=== PATIENT | female | born 1980 | race Caucasian/White ===

== ENCOUNTER → 2018-08-09 10:20 | Outpatient (CLI) | payer SELFPAY ==
--- NOTE | 2018-08-09 10:31 | US_ITS ---
STUDY: RENAL ULTRASOUND - COMPLETE REASON FOR EXAM: Female, 38 years old. Left flank pain left suprapubic pain. TECHNIQUE: Ultrasound evaluation of the kidneys was performed with real-time and static joyner-scale imaging. COMPARISON: None. FINDINGS: RIGHT KIDNEY: Normal location of the right kidney, which is normal in size. The right kidney measures 10.6 cm x 5.1 cm x 4.7 cm. There is a normal cortex of the right kidney. The renal cortex measures 1.4 cm. There is no right renal mass or cyst. There are no right renal calculi. There is no right hydronephrosis. DISTAL RIGHT URETER: There is non-visualization of the distal right ureter. There is no demonstrated right ureterovesical junction calculus. There is a visualized right ureteral jet. LEFT KIDNEY: Normal location of the left kidney, which is normal in size. The left kidney measures 10.7 cm x 4.4 cm x 4.6 cm. There is a normal cortex of the left kidney. The renal cortex measures 1.4 cm. There is no left renal mass or cyst. There are no left renal calculi. There is no left hydronephrosis. DISTAL LEFT URETER: There is non-visualization of the distal left ureter. There is no demonstrated left ureterovesical junction calculus. There is a visualized left ureteral jet. I.V.C.: The IVC is patent. BLADDER: The distended urinary bladder has a volume of 198 ml. The empty urinary bladder has a volume of 20.3 ml. There is a normal wall thickness of the distended urinary bladder. There is no demonstrated mass within the urinary bladder. There are no demonstrated bladder calculi. US/Kidney and Bladder IMPRESSION: Normal ultrasound of the kidneys and urinary bladder. Electronically Signed: Manuel Rios MD at 14:49 EST Tel [phone], Service support ,
== END ==
PROVIDERS: Family Provider Family Medicine; PCP Family Medicine; Referring Provider Nurse Practitioner Adult Health; Visit Provider Nurse Practitioner Adult Health
DX: N30.10 Interstitial cystitis (chronic) without hematuria (principal); R10.30 Lower abdominal pain, unspecified; R10.9 Unspecified abdominal pain
CPT/HCPCS: 76770

== ENCOUNTER 2020-10-07 07:52 | Emergency (ER) | payer MEDICAID, SELFPAY ==
[2020-10-07 07:54] VITALS: BP 114/79; PULSE 107; RESP 16; TEMP 35.5; O2SAT 96; BMI 23.3
--- NOTE | 2020-10-07 07:57 | ED.DCSUM_ITS ---
History of Present Illness Chief Complaint: Abd Pain Informant: Patient Narrative: 40-year-old female presenting with abdominal pain and cramping. Patient states she also has had explosive diarrhea. Patient states that she has had a fever of 102 Fahrenheit. She has been taking Tylenol and ibuprofen and the fever has not come back. Patient states symptom onset was Sunday. She also complains of body aches and nausea. She denies black or bloody stools. She denies vomiting. Patient states that she is currently caring for dogs who have Giardia lamblia. They are currently on metronidazole treatment. Patient complains of body aches but has no loss of taste or smell, cough, cold symptoms. Past Medical History - Allergies and Home Meds Allergies/Adverse Reactions: Allergies metoclopramide [From Reglan] Allergy (Verified 10/07/20 07:53) Hives tetracycline Allergy (Verified 10/07/20 07:53) Hives Primary Care Physician: Chente Valdovinos DO [Primary Care Provider] - Prior records reviewed: Yes Past Medical History: - - Denies significant medical problems. Surgical History: noncontributory Lives: Spouse/ Significant Other Smoking Status: Never smoker Alcohol: None Drugs: None Review of Systems General: Reports: Chills. Denies: Fever, Malaise Eyes: Denies: Visual changes - bilaterally, Diplopia ENT: Denies: Rhinorrhea, Sore throat Cardiovascular: Denies: Chest pain, Palpitations Respiratory: Denies: Dyspnea, Cough, Dyspnea on exertion Gastrointestinal: Reports: Abdominal pain, Nausea, Diarrhea. Denies: Vomiting, Constipation Genitourinary: Denies: Dysuria, Hematuria Musculoskeletal: Reports: Myalgias. Denies: Arthralgias, Neck pain Skin: Denies: Rash, Abscess Neurological: Denies: Headache, Weakness Psych: Denies: Depression, Anxiety Physical Exam Vital Signs/Narrative: Vital Signs Temp Pulse Resp BP Pulse Ox 10/07/20 07:54 96 F L 107 H 16 114/79 96 General: Well nourished, No Acute Distress Head: Normocephalic, Atraumatic Eyes: Perrl, EOMI. Negative for: Scleral icterus ENT: Moist mucous membranes, No rhinorrhea Cardiovascular: Regular rate, Regular rhythm Respiratory: No distress, CTA bilaterally Abdomen: Soft, Nondistended, Tender - Generalized tenderness to palpation.. Negative for: Guarding, Rebound tenderness Extremities: Nontender, No edema Skin: Normal color, No rash. Negative for: Cyanosis, Diaphoresis Neurological: Alert, Oriented x3, Cranial nerves II-XII grossly intact Psychological: Normal affect, Normal Mood Diagnostic/Tx/Re-eval Clinical Impression(s) from Imaging Studies Abdomen/Pelvis CT 10/07/20 08:21 IMPRESSION: Findings in keeping with a pancolitis worse in the right hemicolon. Electronically Signed: Manuel Rios MD at 9:33 EST , Service support , Laboratory Data 10/07/20 10/07/20 10/07/20 08:07 08:07 08:30 WBC 8.4 RBC 4.12 L Hgb 12.8 Hct 37.1 MCV 90.0 MCH 31.1 MCHC 34.5 RDW Std Deviation 39.5 RDW Coeff of Howie 11.9 Plt Count 244 MPV 11.2 Immature Gran % (Auto) 0.500 Neut % (Auto) 64.9 Lymph % (Auto) 21.2 [place] % (Auto) 12.0 H Eos % (Auto) 1.2 Baso % (Auto) 0.2 Absolute Neuts (auto) 5.5 Absolute Lymphs (auto) 1.79 Nucleated RBC % 0 Sodium 139 Potassium 3.4 L Chloride 108 H Carbon Dioxide 26.0 Anion Gap 5 BUN 10 Creatinine 0.77 Estim Creat Clear Calc 78.35 Est GFR (MDRD) Af Amer 108 Est GFR (MDRD) Non-Af 89 BUN/Creatinine Ratio 13.0 Glucose 87 Calcium 8.4 L Total Bilirubin 0.30 AST 28 ALT 43 Alkaline Phosphatase 89 Total Protein 7.2 Albumin 3.0 L Globulin 4.2 Albumin/Globulin Ratio 0.7 L Urine Color Yellow Urine Clarity Sl. Cloudy Urine pH 6.0 Ur Specific [place] 1.015 Urine Protein 15 H Urine Glucose (UA) Normal Urine Ketones 5 H Urine Occult Blood 10 H Urine Nitrite Negative Urine Bilirubin Negative Urine Urobilinogen Normal Ur Leukocyte Esterase 25 H Urine RBC 0-5 SEEN Urine WBC 0-5 SEEN Ur Squamous Epith Cells 0-5 SEEN Urine Bacteria 2+ Urine Mucus 0 SEEN Urine Test Negative - Medical Decision Making 40-year-old female presenting with diffuse crampy abdominal pain. She states it is worse on the mid abdomen. Patient recently treating her dogs at home for Giardia. She is concerned she may have had exposure and therefore contracted Giardia lamblia. Patient has had a fever at home as well as body aches. She complains of diarrhea. She has mild nausea. Patient's lab work today is all within normal limits. Covid antigen is negative. Patient unable to give a stool sample but given the CT scan which shows colitis and her symptoms and exposure to Giardia I will treat her empirically with Flagyl. She is given the first dose in the ED. Impression: 1. Colitis 2. Exposure to Giardia lamblia ED Disposition - Plan for ED Patient: Disposition: Home or Assisted Living Instructions: Giardiasis Prescriptions: metroNIDAZOLE [Flagyl] 250 mg PO Q8H #21 tab Transmission Status: Received by MIRACLE RAMÍREZ RD Ondansetron [Zofran Odt] 4 mg PO Q8H PRN PRN #20 tab PRN Reason: Nausea Transmission Status: Received by MIRACLE RAMÍREZ RD Referrals: Chente Valdovinos DO [Primary Care Provider] -
[2020-10-07 07:59] VITALS: BP 114/79; PULSE 107; RESP 16; TEMP 35.5; O2SAT 96
--- NOTE | 2020-10-07 08:21 | CT_ITS ---
STUDY: CT ABDOMEN AND PELVIS WITH CONTRAST REASON FOR EXAM: Female, 40 years old. ABD CRAMPING,FEVER,N/V X3 DAYS RADIATION DOSAGE (If Supplied By Facility): CTDIvol = ( 8.09 ) mGy, DLP = ( 311.98 ) mGycm TECHNIQUE: Transaxial images were obtained from the dome of the diaphragm to the symphysis pubis without oral contrast. IV 100mL Isovue-300 was administered. Sagittal and coronal images were reconstructed. Individualized dose optimization techniques were used for this CT. COMPARISON: None. FINDINGS: Bilateral breast prostheses. Minimal degree of dependent bibasilar atelectasis. The visualized portions of the heart are within normal limits. Normal liver. Normal gallbladder and extrahepatic biliary system. Borderline splenomegaly. Normal pancreas. Normal bilateral adrenal glands. Normal right kidney. Normal left kidney. Normal visualized stomach. Normal small intestine. There is evidence of circumferential wall thickening and edematous changes with mild degree of inflammatory changes involving the right hemicolon up to at least the splenic flexure. Minimal changes seen in the descending colon and sigmoid colon. The appendix is visualized and appears normal. Normal abdominal aorta. Normal inferior vena cava. Normal retroperitoneum. Normal urinary bladder. Follicles are seen in the right ovary. There is a small umbilical hernia containing fat. Normal osseous structures. CT/Abdomen/Pelvis W IV Cont ONLY IMPRESSION: Findings in keeping with a pancolitis worse in the right hemicolon. Electronically Signed: Manuel Rios MD at 9:33 EST , Service support ,
[2020-10-07 08:40] LABS: Mucous, Urine 0 SEEN /hpf (<or=2+)
[2020-10-07 08:41] LABS: Absolute Lymphocyte Count 1.79 X10^3/uL (0.83-4.51); Absolute Neutrophil Count 5.5 X10^3/uL (2.0-7.7); Basophil# 0.02 X10^3/uL; Basophil% 0.2 % (0-1); Eosinophils% 1.2 % (0-5); Hematocrit 37.1 % (37-47); Hemoglobin 12.8 g/dL (12.0-15.0); Lymphocyte # 1.79 X10^3/ul (4.0); Lymphocyte % 21.2 % (19-41); Mean Corp Hgb Conc 34.5 g/dL (32-36); Mean Corpuscular Hgb 31.1 pg (27.0-32.0); Mean Platelet Vol. 11.2 fl (6.2-12.0); Monocyte# 1.01 X10^3/uL; NRBC Flagged by Analyzer 0 % (0-5); Neutrophil # 5.47 X10^3/uL (2.7-7.7); Neutrophil % 64.9 % (47-70); Platelet Count 244 K/mm3 (150-450); RBC Distribution Width CV 11.9 % (11.6-14.6); RBC Distribution Width SD 39.5 fl (35.1-43.9); Red Blood Count 4.12 M/mm3 (4.2-5.4); White Blood Count 8.4 K/mm3 (4.4-11.0)
[2020-10-07] MEDS: 0.9% Normal Saline 1,000 ML 1000 ML IV (08:41)
[2020-10-07 08:49] LABS: Color, Urine Yellow (Yellow); Glucose, Dipstick Normal (Normal); Ketone-Dipstick 5 mg/dl (Negative); Leukocyte Esterase-Dipstick 25 /ul (Negative); Nitrite-Dipstick Negative (Negative); Occult Blood-Urine 10 /ul (Negative); Protein-Dipstick 15 mg/dl (Negative); Specific Gravity, Urine 1.015 (1.002-1.030); Urine Bilirubin Dipstick Negative (Negative); Urine Clarity Sl. Cloudy (Clear); Urine Urobilinogen Normal (Normal)
[2020-10-07 08:50] LABS: ALB/GLOB Ratio 0.7 RATIO (0.9-2.4); AST(SGOT) 28 U/L (15-37); Alanine Aminotransfer ALT/SGPT 43 U/L (13-56); Alkaline Phosphatase 89 U/L (45-117); Anion Gap 5 (5-15); BUN 10 mg/dL (7-18); Calcium,Total 8.4 mg/dL (8.5-10.1); Chloride 108 mmol/L (98-107); Creatinine, Serum 0.77 mg/dL (0.55-1.02); EST Glomerular Filtration Rate 89 mL/min (>60); Est Glom Filt Rate - Afr Amer 108 mL/min (>60); Estimated Creatinine Clearance 78.35 ml/min; Globulin 4.2 g/dL (2.2-4.2); Glucose 87 mg/dL (74-106); Potassium 3.4 mmol/L (3.5-5.1); Protein, Total 7.2 g/dL (6.4-8.2); Sodium Level 139 mmol/L (136-145)
[2020-10-07 08:55] LABS: Bacteria 2+ /hpf (None Seen); Internal QC Validated? YES +Cl - CLEAR BKGD; Pregnancy, Urine Negative Negative; Red Blood Cells-Urine 0-5 SEEN /hpf (0-5); Squamous Epithelial Cells - UA 0-5 SEEN /hpf (5-10); White Blood Cells 0-5 SEEN /hpf (0-5)
== END 2020-10-07 10:45 | disposition home or self-care (01) ==
PROVIDERS: Emergency Provider Student in an Organized Health Care Education/Training Program; PCP Family Medicine
DX: A09 Infectious gastroenteritis and colitis, unspecified (principal); Z20.818 Contact with and (suspected) exposure to other bacterial communicable diseases
CPT/HCPCS: 74177; 80053; 81001; 81025; 85025; 87426; 96360; 96361; 99284; J7030; Q9967; A4216

== ENCOUNTER → 2021-05-16 10:55 | Outpatient (CLI) | payer MEDICAID, SELFPAY ==
[2021-05-16 12:17] LABS: Erythrocyte Sedimentation Rate 2 mm/hr (0-30)
[2021-05-16 12:20] LABS: Absolute Neutrophil Count 3.4 X10^3/uL (2.0-7.7); Basophil# 0.03 X10^3/uL; Basophil% 0.5 % (0-1); Eosinophils% 1.6 % (0-5); Hematocrit 37.5 % (37-47); Hemoglobin 12.6 g/dL (12.0-15.0); Lymphocyte % 34.5 % (19-41); Mean Corp Hgb Conc 33.6 g/dL (32-36); Mean Corpuscular Hgb 30.7 pg (27.0-32.0); Mean Corpuscular Volume 91.5 fL (81-99); Mean Platelet Vol. 11.9 fl (6.2-12.0); Monocyte# 0.62 X10^3/uL; Monocyte% 9.7 % (0-10); NRBC Flagged by Analyzer 0 % (0-5); Neutrophil # 3.41 X10^3/uL (2.7-7.7); Neutrophil % 53.4 % (47-70); Platelet Count 260 K/mm3 (150-450); RBC Distribution Width CV 12.2 % (11.6-14.6); RBC Distribution Width SD 40.9 fl (35.1-43.9); White Blood Count 6.4 K/mm3 (4.4-11.0)
[2021-05-16 12:42] LABS: ALB/GLOB Ratio 0.9 RATIO (0.9-2.4); AST(SGOT) 24 U/L (15-37); Alanine Aminotransfer ALT/SGPT 37 U/L (13-56); Albumin, Serum 3.4 g/dL (3.2-5.0); Alkaline Phosphatase 85 U/L (45-117); Anion Gap 7 (5-15); BUN 10 mg/dL (7-18); BUN/Creat Ratio 13.3 RATIO (10-20); CRP < 2.90 mg/L (0.0-3.0); Calcium,Total 8.6 mg/dL (8.5-10.1); Chloride 105 mmol/L (98-107); Creatinine, Serum 0.75 mg/dL (0.55-1.02); EST Glomerular Filtration Rate 91 mL/min (>60); Est Glom Filt Rate - Afr Amer 110 mL/min (>60); Globulin 3.9 g/dL (2.2-4.2); Glucose 90 mg/dL (74-106); Potassium 3.5 mmol/L (3.5-5.1); Protein, Total 7.3 g/dL (6.4-8.2); Sodium Level 138 mmol/L (136-145)
[2021-05-16 13:16] LABS: Hepatitis B Surface Antibody Non-Reactive; Hepatitis B Surface Antigen Non-Reactive (Nonreactive); Hepatitis C Antibody Non-Reactive (Nonreactive)
[2021-05-17 17:00] LABS: ANTINUCLEAR ANTIBODIES DIRECT Negative (Negative)
[2021-05-19 07:44] LABS: CCP IgG Antibodies 6 units (0-19); Hepatitis B Core AB IgM Negative (Negative)
== END ==
PROVIDERS: PCP Family Medicine; Referring Provider Internal Medicine Rheumatology; Visit Provider Internal Medicine Rheumatology
DX: M06.4 Inflammatory polyarthropathy (principal); N30.10 Interstitial cystitis (chronic) without hematuria
CPT/HCPCS: 36415; 80053; 85025; 85652; 86038; 86140; 86200; 86705; 86706; 86803; 87340

== ENCOUNTER → 2022-01-21 | Outpatient (CLI) | payer MEDICAID, SELFPAY ==
[2022-01-21 14:47] LABS: Mucous, Urine 0 SEEN /hpf (<or=2+); Red Blood Cells-Urine 0 SEEN /hpf (0-5); Squamous Epithelial Cells - UA 0 SEEN /hpf (5-10)
[2022-01-21 14:51] LABS: Color, Urine Yellow (Yellow); Glucose, Dipstick Normal (Normal); Ketone-Dipstick Negative (Negative); Leukocyte Esterase-Dipstick Negative /ul (Negative); Nitrite-Dipstick Negative (Negative); Occult Blood-Urine Negative /ul (Negative); Protein-Dipstick Negative (Negative); Urine Bilirubin Dipstick Negative (Negative); Urine Clarity Clear (Clear); Urine Urobilinogen Normal (Normal)
[2022-01-21 14:58] LABS: Bacteria RARE /hpf (None Seen); White Blood Cells 0-5 SEEN /hpf (0-5)
== END | disposition home or self-care (01) ==
PROVIDERS: PCP Family Medicine; Visit Provider Physician Assistant Surgical
DX: M54.50 Low back pain, unspecified (principal)
CPT/HCPCS: 81001; 87086; 87088

== ENCOUNTER → 2022-02-18 | Outpatient (CLI) | payer MEDICAID, SELFPAY | END | disposition home or self-care (01) | LOC: LABSPEC 15:39 | PROVIDERS: PCP Family Medicine; Visit Provider Nurse Practitioner Family | DX: J02.9 Acute pharyngitis, unspecified (principal) | CPT/HCPCS: 87070; 87077; 87186 ==

== ENCOUNTER → 2022-03-26 | Outpatient (CLI) | payer MEDICAID, SELFPAY | END | disposition home or self-care (01) | PROVIDERS: PCP Family Medicine; Visit Provider Nurse Practitioner Family | DX: J02.9 Acute pharyngitis, unspecified (principal) | CPT/HCPCS: 87070 ==

== ENCOUNTER 2024-05-22 20:07 | Emergency (ER) | payer SELFPAY ==
[2024-05-22 20:09] VITALS: BP 127/78; PULSE 100; RESP 18; TEMP 36.2; O2SAT 98; BMI 25.5
--- NOTE | 2024-05-22 20:35 | RAD_ITS ---
INDICATION: pain EXAMINATION/TECHNIQUE: X-RAY - LEFT XR Shoulder Min 2 Views 4 VIEWS COMPARISON: No relevant prior comparison study available FINDINGS: SOFT TISSUES: No soft tissue swelling or gas. No radiopaque foreign body. BONES/JOINTS: No acute fracture or subluxation.. Normal alignment. Preservation of the joint space.. No sclerotic or destructive changes observed. RAD/Shoulder min 2 Views IMPRESSION: Negative. Electronically Signed: Nehemiah Streeter MD at 21:12 EDT ,
--- NOTE | 2024-05-22 22:54 | EDS_ITS ---
HPI History of Present Illness Chief Complaint: Upper Extremity Injury Informant: patient Narrative Narrative: Patient is a 44-year-old female with past medical history of rheumatoid arthritis. She states for the past few weeks she has been having pain in her left shoulder with no trauma. She states that today she went to lift the bale of hay and had sudden onset of pain along the left anterior shoulder. She states the pain is worse with motion and is not improving any type of [id number] medication or time. Secondary to this patient comes in for evaluation [facility] Medical History (Updated 05/23/24 @ 02:[address] Moncho Graham, DO) Rheumatoid arthritis Home Medications ?Medication ?Instructions ?Recorded ?Last Taken ?Type gabapentin 300 mg capsule 300 mg PO TID 30 days #90 caps 05/22/24 Unknown Rx methocarbamol 500 mg tablet 1,000 mg (2 x 500 mg) PO 4X/DAY 05/22/24 Unknown Rx PRN Muscle pain/spasm #56 tabs oxycodone-acetaminophen 5 mg-325 1 tab PO Q6H PRN pain 3 days #12 05/22/24 Unknown Rx mg tablet (Percocet) tabs Allergy/AdvReac Type Severity Reaction Status Date / Time metoclopramide (From Reglan) Allergy Hives Verified 05/22/24 20:08 tetracycline Allergy Hives Verified 05/22/24 20:08 Social History Smoking Status: Never smoker alcohol intake: never ROS ROS ED Constitutional Constitutional ED: Denies chills or fever(s) ENT ENT ED: Denies sore throat Cardiovascular Cardiovascular: Denies chest pain Respiratory/Chest Respiratory/Chest: Denies cough or dyspnea Gastrointestinal Gastrointestinal: Denies abdominal pain, diarrhea, nausea or vomiting Genitourinary Genitourinary ED: Denies dysuria Musculoskeletal Musculoskeletal: Reports other Details: Positive left shoulder pain ; Denies neck pain Integumentary Denies Abrasions or rash Neurologic Neurologic: Denies headache(s) or paresthesias Hematologic/Lymphatic Hematologic/Lymphatic: Denies easy bleeding or easy bruising EXAM Physical Exam Const Vital Signs: 05/22/24 20:09 Temperature 97.1 F L Temperature Source Temporal Pulse Rate 100 Respiratory Rate 18 Blood Pressure 127/78 H Blood Pressure Mean 94 Pulse Ox 98 Oxygen Delivery Method Room Air Positive well nourished and well developed General Appearance ED: well developed HEENT HEENT Narrative: Normocephalic atraumatic Eyes PERRL and EOMs intact bilaterally Neck full ROM and supple Neck Narrative: No bony deformity or step-off of the cervical spine no midline tenderness to palpation Negative Spurling sign bilaterally Resp normal respiratory effort and clear to auscultation bilaterally Cardio regular rate and regular rhythm Extremity Extremity Narrative: Left upper extremity is neurovascularly intact; AIN/PIN are intact and normal. No obvious bony deformity or joint effusion and negative sulcus sign noted. Patient does have pain on palpation along the anterior aspect of the left shoulder over top of the supraspinatus tendon. There is increased pain with front and side shoulder raising and positive [place] Man test is noted concerning for rotator cuff injury. Neuro oriented x3 and CN's II-XII intact bilaterally Sensorium / Orientation: alert Psych mental status grossly normal Skin no rashes or lesions noted Skin Narrative: No overlying signs of trauma or infection MDM MDM MDM Narrative Medical decision making narrative: Patient arrived to ER with stable vitals and reported sudden onset of pain with lifting. Differential diagnosis is for rotator cuff strain versus rotator cuff tear versus fracture versus dislocation. Secondary to this an x-ray was obtained which revealed no acute bony pathology. Based on her physical exam and history there is high likelihood for supraspinatus rotator cuff tear. At this time she is closed and neurovascularly intact and there is no need for emergent orthopedic consultation. Patient to follow-up with Ortho on an outpatient basis to discuss need for MRI to further assess the cause of her pain and this time will be treated symptomatically History & Record Review Discussion w/independent historian: Patient Radiography Diagnostic Testing: Clinical Impression(s) from Imaging Studies Shoulder X-Ray 05/22/24 20:35 IMPRESSION: Negative. Electronically Signed: Nehemiah Streeter MD at 21:12 EDT , X-ray of the left shoulder as interpreted by the emergency medicine physician reveals no acute fracture dislocation or joint effusion Discharge Plan Triage Chief Complaint: Upper Extremity Injury ED Provider: Moncho Graham Dx/Rx/DC Orders Clinical Impression: Injury of left rotator cuff, Rheumatoid arthritis Instructions: Rotator Cuff Injury, ED Rotator Cuff Tear Prescriptions: New gabapentin 300 mg capsule 300 mg PO TID 30 Days Qty: 90 0RF oxycodone-acetaminophen [Percocet] 5-325 mg tablet 1 tab PO Q6H PRN (Reason: pain) 3 Days Qty: 12 0RF methocarbamol 500 mg tablet 1,000 mg PO 4X/DAY PRN (Reason: Muscle pain/spasm) Qty: 56 1RF Primary Care Provider: Miguel Hylton Referrals: Miguel Hylton DO [Primary Care Provider] - Marino Chua DO [Med Staff - Active Staff] - Activity Restrictions/Additional Instructions: Please follow-up with orthopedics as your history and exam indicate a injury/tear to your rotator cuff. You may need an MRI for further evaluation. Take the prescribed medication as directed to control pain and return to the ER should you have any further concerns. Print Language: Iraqi Disposition Disposition: Home, Self Care Discharge Date/Time: 05/22/24 23:58
[2024-05-22] MEDS: Ketorolac 30 MG/ML Syringe IM (23:15)
[2024-05-22 23:21] VITALS: BP 128/68; PULSE 72; RESP 16; TEMP 36.9; O2SAT 100
== END 2024-05-22 23:58 | disposition home or self-care (01) ==
PROVIDERS: Emergency Provider Emergency Medicine; PCP Family Medicine; Visit Provider Emergency Medicine
DX: S46.002A Unspecified injury of muscle(s) and tendon(s) of the rotator cuff of left shoulder, initial encounter (principal); M06.9 Rheumatoid arthritis, unspecified; X50.0XXA Overexertion from strenuous movement or load, initial encounter
CPT/HCPCS: 73030; 96372; 99282

== ENCOUNTER 2024-06-26 13:07 | Emergency (ER) | payer SELFPAY ==
[2024-06-26 13:07] VITALS: BP 120/77; PULSE 75; RESP 16; TEMP 36.3; O2SAT 97; BMI 24.5
--- NOTE | 2024-06-26 14:39 | EX.ED.UPPERE ---
HPI History of Present Illness HPI Narrative: 44-year-old female has had left shoulder pain for more than 2 months. They have horses she was lifting hay and felt a pop. She came in the emergency on May 22 had an x-ray that was negative. The concern was for a rotator cuff tear. She has not been able to get into see orthopedics as of yet. She was hoping I can get the MRI today. Or do a joint injection for her discomfort. She denies any fever or swelling. Pain is worse with movement and she is unable to lift her left arm above her shoulder. She also has a history of rheumatoid arthritis. Chief Complaint: Upper Extremity Injury Informant: patient Occured/Mechanism Mechanism/Context: Yes injury and No blunt trauma Onset/Context/Timing Onset: Month(s) Context: Sudden Onset Timing: Continuous Quality of Pain: Sharp Current Severity: Moderate Maximum Severity: Moderate Narrative Narrative: 44-year-old female left shoulder pain for months suspected possible rotator cuff tear. Pending follow-up with orthopedics and possible MRI. Had negative x-rays about 4 weeks ago. Also history of rheumatoid arthritis. Prior similar symptoms: Yes Recent Illness/Hospitalization: No PFSH PFSH Medical History Rheumatoid arthritis Home Medications ?Medication ?Instructions ?Recorded ?Last Taken ?Type gabapentin 300 mg capsule 300 mg PO TID 30 days #90 caps 05/22/24 Unknown Rx methocarbamol 500 mg tablet 1,000 mg (2 x 500 mg) PO 4X/DAY 05/22/24 Unknown Rx PRN Muscle pain/spasm #56 tabs oxycodone-acetaminophen 5 mg-325 1 tab PO Q6H PRN pain 3 days #12 05/22/24 Unknown Rx mg tablet (Percocet) tabs Allergy/AdvReac Type Severity Reaction Status Date / Time metoclopramide (From Reglan) Allergy Hives Verified 05/22/24 20:08 tetracycline Allergy Hives Verified 05/22/24 20:08 Social History Smoking Status: Never smoker alcohol intake: never ROS ROS ED ROS Narrative Denies recent illness. Denies fever. Constitutional Constitutional ED: Denies fever(s) Eyes Eyes: Denies blurry vision ENT ENT ED: Denies ear pain Cardiovascular Cardiovascular: Denies chest pain Respiratory/Chest Respiratory/Chest: Denies cough Gastrointestinal Gastrointestinal: Denies abdominal pain Genitourinary Genitourinary ED: Denies dysuria Musculoskeletal Musculoskeletal: Denies back pain Integumentary Denies abscess Neurologic Neurologic: Denies headache(s) Psychiatric Psychiatric: Denies anxiety Endocrine Endocrinology: Denies cold intolerance Hematologic/Lymphatic Hematologic/Lymphatic: Denies easy bleeding or easy bruising Allergic/Immunologic Allergic/Immunologic ED: Denies mouth swelling or tongue swelling EXAM Physical Exam Narrative Exam Narrative: Well-appearing 44-year-old female. Vital signs stable afebrile. H EENT exam unremarkable. Neck nontender. Lungs clear to auscultation. Heart regular rhythm no murmur. Abdomen soft nontender. Moving all 4 extremities. Nontender no edema. Left shoulder minimally tender. No significant swelling. No redness or warmth. Decreased range of motion. She can bring it up about 45 to 60 degrees but cannot lift her arm overhead consistent with a rotator cuff tear. She has discomfort in the shoulder. Normal strength in her left hand. Normal sensation. Normal radial pulse. No edema in the forearm. Const Vital Signs: 06/26/24 13:07 Temperature 97.4 F L Temperature Source Oral Pulse Rate 75 Respiratory Rate 16 Blood Pressure 120/77 Blood Pressure Mean 91 Pulse Ox 97 Oxygen Delivery Method Room Air Positive well nourished and well developed; Negative for obese, cachectic, contractures or unkempt General Appearance ED: well developed and NAD; Negative for unkempt, cachectic, contractures, cyanotic or diaphoretic Nutritional Appearance: Negative for cachectic or obese HEENT Reports moist mucous membranes normocephalic and atraumatic; Negative for trauma or tenderness Eyes PERRL and EOMs intact bilaterally General Eye ED: Negative for other Neck supple General: Negative for tenderness Lymph Lymphatic: Negative for other Chest Wall inspection of chest normal and palpation of chest normal Resp normal respiratory effort and clear to auscultation bilaterally Effort and Inspection: Negative for pain with movement Auscultation: Negative for rales, rhonchi or wheezes Cardio regular rate, regular rhythm, S1 normal heart sound, S2 normal heart sound and no murmurs Rate: Negative for bradycardia or tachycardic Rhythm: Negative for abnormal rhythm GI non-distended and no masses Palpation: soft; Negative for tender, guarding or rebound tenderness present Back/Spine no CVA tenderness Extremity normal to inspection and full ROM Extremity Narrative: Except left shoulder. Minimal tenderness. No significant effusion. No swelling. No redness or cellulitis. No septic joint. Unable to lift her arm above her shoulder. Concern for possible rotator cuff tear. Left hand has normal strength, sensation and radial pulse. Neuro oriented x3, CN's II-XII intact bilaterally, moves all extremities, no focal motor deficits and no sensory deficits noted Sensorium / Orientation: alert, oriented to person, oriented to place and oriented to time Motor Exam: strength 5/5 throughout Psych mental status grossly normal Appearance: Negative for unkempt Attitude: No agitated Mood & Affect: Negative for depressed, anxious or tearful Skin General Skin Exam: Negative for petechiae Lesions: no lesions Rashes: no rashes MDM MDM MDM Narrative Medical decision making narrative: 44-year-old female with chronic left shoulder pain for months may have a left rotator cuff tear versus a labrum tear or something else. Prior negative x-rays about a month ago. She is requesting something for pain we discussed a joint injection which she would like to have done. She understands we cannot get the MRI today. She has outpatient follow-up with orthopedics. She did not want oral narcotic pain medication. Procedures Other Procedures Procedure(s): Left shoulder joint injection. Area was cleaned thoroughly with alcohol swabs. 10 cc of lidocaine and 40 mg of Kenalog were injected. She tolerated well. She did get some relief with the injection. Discharge Plan Triage Chief Complaint: Upper Extremity Injury ED Provider: Talha Jama Dx/Rx/DC Orders Clinical Impression: Acute pain of left shoulder, Left rotator cuff tear, History of rheumatoid arthritis Instructions: ED Rotator Cuff Tear, ED Shoulder Pain, Uncertain Cause Prescriptions: No Action gabapentin 300 mg capsule 300 mg PO TID 30 Days Qty: 90 0RF oxycodone-acetaminophen [Percocet] 5-325 mg tablet 1 tab PO Q6H PRN (Reason: pain) 3 Days Qty: 12 0RF methocarbamol 500 mg tablet 1,000 mg PO 4X/DAY PRN (Reason: Muscle pain/spasm) Qty: 56 1RF Primary Care Provider: Miguel Hylton Referrals: Miguel Hylton DO [Primary Care Provider] - Niles Thompson DO [Med Staff - Active Staff] - As soon as possible Talha Jama MD [Emergency Provider] - Marino Chua DO [Med Staff - Active Staff] - As soon as possible Activity Restrictions/Additional Instructions: Ice to shoulder. Motrin and Tylenol for pain. Call make an appointment with both orthopedic groups. The [facility] which is Dr. Thompson and the [facility] which is Dr. Chua. Get on their cancellation list and the first on the can see you get in with. Most likely [facility] to evaluate the rotator cuff and the joint. Print Language: Frisian Disposition Disposition: Home, Self Care
[2024-06-26] MEDS: Lidocaine 1% (20 ml mdv) 20 ML Vial 10 ML INFILT (14:45)
[2024-06-26] MEDS: Triamcinolone Acetonide 40 MG/ML Vial INTRAARTIC (14:45)
[2024-06-26 15:18] VITALS: BP 120/81; PULSE 71; RESP 16; TEMP 36.5; O2SAT 99
== END 2024-06-26 15:19 | disposition home or self-care (01) ==
PROVIDERS: Emergency Provider Emergency Medicine; PCP Family Medicine; Visit Provider Emergency Medicine
DX: M25.512 Pain in left shoulder (principal); M06.9 Rheumatoid arthritis, unspecified; M75.102 Unspecified rotator cuff tear or rupture of left shoulder, not specified as traumatic; G89.29 Other chronic pain
CPT/HCPCS: 20610; 96372; 99282

== ENCOUNTER → 2024-07-31 | Outpatient (CLI) | payer BC, SELFPAY ==
--- NOTE | 2024-07-31 10:29 | MRI_ITS ---
STUDY: MRI LEFT SHOULDER REASON FOR EXAM: Female, 44 years old. Pain, stiffness, assess tear or frozen shoulder. TECHNIQUE: Standardized fat and water weighted pulse sequences were obtained in all 3 orthogonal planes. COMPARISON: Left shoulder radiographs dated 05/22/2024. FINDINGS: There is a 2 mm low-grade partial thickness articular surface tear of the distal supraspinatus tendon insertion (coronal T2 series 6 image 10). Normal infraspinatus tendon. Normal subscapularis tendon. Normal teres minor tendon. Normal supraspinatus muscle. Normal infraspinatus muscle. Normal subscapularis muscle. Normal teres minor muscle. Normal glenohumeral articulation. There is mild enthesopathic subcortical cyst formation of the greater tuberosity of the humeral head. Normal biceps labral complex. Normal intracapsular long biceps tendon. Normal labrum. Normal capsulo-ligamentous complex. Normal rotator interval. There is mild acromioclavicular arthrosis. There is a Type II morphology (curved), with a neutral orientation. There is no subacromial-subdeltoid bursal fluid. Normal visualized coracohumeral and coracoacromial ligaments. Normal quadrilateral space. Normal axillary space. Normal deltoid muscle. Normal trapezius muscle. MRI/Upper Ext Joint Only(Routine) IMPRESSION: 2 mm low-grade partial thickness articular surface tear of the distal supraspinatus tendon insertion. Mild acromioclavicular arthrosis. Electronically Signed: Milan Sanchez MD at 14:32 EST ,
== END | disposition home or self-care (01) ==
PROVIDERS: PCP Family Medicine; Referring Provider Orthopaedic Surgery Sports Medicine; Visit Provider Orthopaedic Surgery Sports Medicine
DX: M25.512 Pain in left shoulder (principal); M75.02 Adhesive capsulitis of left shoulder
CPT/HCPCS: 73221